=== PATIENT | female | born 1950 | race Caucasian/White ===

== ENCOUNTER 2020-06-30 23:00 | Emergency (ER) | payer OTHER ==
[~2020-06-30] VITALS: Ht 157.5 cm; Wt 114.0 kg
[2020-06-30] MEDS ORDERED: ACETAMINOPHEN 325MG TABLET PO STA (23:14)
[2020-06-30] MEDS ORDERED: SODIUM CHLORIDE 0.9% 1,000 ML IV ONE (23:15)
[2020-06-30] MEDS ORDERED: AZITHROMYCIN 500 MG in DEXT 5% WATER 250 ML IV ONE (23:15)
[2020-06-30] MEDS ORDERED: CEFTRIAXONE 1 G PREMIX 50 ML IV ONE (23:15)
[2020-07-01 00:14] LABS: BASOPHILS % 0.3 % (0.0-2.0); EOSINOPHILS % 0.7 % (0.0-5.0); HEMATOCRIT. 28.5 % (36.0-48.0); HEMOGLOBIN. 9.6 g/dL (12.0-16.0); LYMPHOCYTES % 8.7 % (20.0-50.0); MEAN CORPUSCULAR VOLUME 80.4 fL (81.0-99.0); MEAN PLATELET VOLUME 9.4 fl (7.4-10.4); MONOCYTES % 7.3 % (2.0-8.0); PLATELET 140 x1000/uL (130-400); RED BLOOD CELL COUNT 3.54 mill/uL (4.2-5.4); RED CELL DISTRIBUTION WIDTH 15.3 % (11.6-14.6)
[2020-07-01 00:15] LABS: CHLORIDE 106 mEq/L (98-107)
[2020-07-01] MEDS ORDERED: FUROSEMIDE 100MG/10ML VIAL IVP SCH (00:30)
[2020-07-01 02:15] LABS: CLARITY URINE CLEAR (CLEAR); COLOR URINE YELLOW (YELLOW); KETONES URINE NEGATIVE (NEGATIVE); LEUKOCYTE ESTERASE URINE NEGATIVE (NEGATIVE); NITRITE URINE NEGATIVE (NEGATIVE); OCCULT BLOOD URINE NEGATIVE (NEGATIVE); PROTEIN URINE 3+ (NEGATIVE); SPECIFIC GRAVITY URINE 1.017 (1.005-1.030); UROBILINOGEN URINE 0.2 E.U./dL (0.2-1.0)
[2020-07-01 04:59] VITALS: BP 179/77
== END 2020-07-01 05:33 | disposition short-term general hospital (02) ==
LOC: ER 23:00 → CANRESERV 07-01 00:54 → ENRESERV 07-01 00:54 → ER 07-01 05:33 → CANBEDREQ 07-01 15:54
DX: R06.02 Shortness of breath (principal); R09.02 Hypoxemia; R50.9 Fever, unspecified; I11.0 Hypertensive heart disease with heart failure; I50.9 Heart failure, unspecified; Z20.822 Contact with and (suspected) exposure to COVID-19
CPT/HCPCS: 36415; 71045; 80053; 81003; 83605; 83880; 84145; 84484; 85025; 85610; 87040; 87086; 87804; 93005; 96365; 96366; 96367; 96375; 99285; C9803; J0456; J0696; J1940; J7030; J7060; U0003; U0005